=== PATIENT | female | born 1995 | race African-American/Black ===

== ENCOUNTER 2022-01-21 09:57 | Emergency (ER) | payer OTHER, SELFPAY ==
[2022-01-21 10:08] VITALS: BP 153/106; PULSE 89; RESP 16; TEMP 36.7; O2SAT 99
--- NOTE | 2022-01-21 10:17 | ED.GENADULT ---
HPI - General Adult General Chief complaint: Unspecified Stated complaint: body aches Time Seen by Provider: 01/21/22 10:17 Source: patient Mode of arrival: ambulatory Limitations: no limitations History of Present Illness HPI narrative: 26 yo F presents with c/o generalized muscle spasms and aching for the past 1 to 1.5 years. Had plans to do x-rays and labs with her PCP but he left and went to hospice care. States he is doing primary care again but every time she calls they will not give her an appt. Has called other offices and told wait time to be seen is 2 to 3 months. Pt does not work. Cannot work because it makes me swell up . States that she lays in bed all day. Takes tylenol and ibuprofen and not helping with pain. BP elevated today. Pt reports no hx of high BP. All systems reviewed and negative except as noted above. Related Data Allergies Allergy/AdvReac Type Severity Reaction Status Date / Time aspirin Allergy Other Verified 01/21/22 10:34 Review of Systems Review of Systems: CONSTITUTIONAL: Denies fever, chills, or sweats. EYES: Denies visual changes, redness, or discharge. ENT: Denies rhinorrhea, congestion, sore throat, or otalgia. CARDIOVASCULAR: Denies chest pain, palpitations, or edema. RESPIRATORY: Denies cough or dyspnea. GASTROINTESTINAL: Denies abdominal pain, nausea, vomiting, or diarrhea. GENITOURINARY: Denies dysuria or hematuria. SKIN: Denies rash or itching. MUSCULOSKELETAL: Reports generalized muscle pain and spasm. NEUROLOGIC: Denies headache, numbness, or weakness. PSYCHIATRIC: Denies anxiety or depression. All other systems reviewed are negative, except as documented in HPI. FOR[facility]LY [facility] Family History Family History Mother Patient's mother is in good health Father Patient's father is in good health Sibling Patient's sister is in good health Patient's brother is in good health Social History Social History Alcohol intake: never Gender identity (if verbalized by the patient): Female Comments At time of signature, agree with nursing past medical, surgical, social and family history. There is no relevant family history pertinent to the presenting complaint. Exam Narrative: GENERAL: This is a well-nourished, well-developed patient, in no apparent distress. Morbidly obese HEAD: normocephalic, atraumatic. EYES: PERRL. Sclera clear/white. Vision is grossly intact. EARS: External ears normal, auditory canals clear and without drainage, TMs normal without perforation. Hearing grossly intact. NOSE: External nose normal with no obvious nasal discharge, nares without redness, no rhinorrhea. THROAT: Mucous membranes moist, posterior pharynx clear. NECK: Neck supple, non-tender without lymphadenopathy, masses or thyromegaly. CARDIOVASCULAR: Regular rate and rhythm without murmurs, gallops, or rubs. RESPIRATORY: Clear to auscultation. Breath sounds equal bilaterally. No wheezes, rales, or rhonchi. GASTROINTESTINAL: Abdomen soft, non-tender, nondistended. Bowel sounds are active. No hepato-splenomegaly, or palpable masses. No guarding. SKIN: warm, Dry, intact with no suspicious lesions or rash, good texture and turgor. NEURO: awake, alert, and oriented to person, place and time. There were no obvious focal neurologic abnormalities. EXTREMITIES: No effusion, or edema noted. Negative Homans sign bilaterally. Generalized tenderness BACK: Generalized tenderness Course Course Level of Care: Express Care Visit Vital Signs Vital signs: Vital Signs Temperature 36.7 C 01/21/22 10:08 Pulse Rate 89 01/21/22 10:08 Respiratory Rate 16 01/21/22 10:08 Blood Pressure 153/106 H 01/21/22 10:08 Pulse Oximetry 99 01/21/22 10:08 Temperature 36.7 C 01/21/22 10:08 Pulse Rate 89 01/21/22 10:08 Respiratory Rate 16 01/21/22 10:08 Blood Pressure 153/106 H 01/21/22 10:08 Puls
== END 2022-01-21 10:37 | disposition home or self-care (01) ==
PROVIDERS: Emergency Provider Nurse Practitioner Family
DX: R52 Pain, unspecified (principal); R03.0 Elevated blood-pressure reading, without diagnosis of hypertension; J45.909 Unspecified asthma, uncomplicated
CPT/HCPCS: 99213; G0463